=== PATIENT | male | born 1950 | race Two or more races ===

== ENCOUNTER 2025-08-15 23:24 | Emergency (ER) | payer MEDICARE ==
[~2025-08-15] VITALS: Ht 167.6 cm; Wt 74.8 kg
[2025-08-15] MEDS ORDERED: ECOT81TA5 PO (23:31)
[2025-08-16 01:15] LABS: BASO # 0.1 10^3/uL (0.0-0.2); BASO % 0.8 % (0.0-1.0); EOS # 0.3 10^3/uL (0.0-0.5); EOS % 4.1 % (0.0-3.0); LYMPH # 1.9 10^3/uL (1.5-5.0); LYMPH % 31.2 % (24.0-44.0); MONO # 0.5 10^3/uL (0.0-0.8); MONO % 8.3 % (2.0-8.0); NEUTROPHILS # 3.4 10^3/uL (1.5-8.5); NEUTROPHILS % 55.1 % (36.0-66.0); PLATELET COUNT, AUTOMATED 199 10^3/uL (150-450)
[2025-08-16 01:39] LABS: ALT/SGPT 35 U/L (7.0-40); AST/SGOT 37 U/L (<34); CALCIUM LEVEL 9.1 MG/DL (8.3-10.6); CARBON DIOXIDE LEVEL 25 MMOL/L (20-31); CHLORIDE LEVEL 100 MMOL/L (98-107); CREATININE FOR GFR 0.84 MG/DL (0.70-1.30); GLOMERULAR FILTRATION RATE > 90.0 (>42); POTASSIUM SERUM 3.9 MMOL/L (3.5-5.1); SALICYLATE LEVEL < 3.0 MG/DL (<30); SODIUM LEVEL 135 MMOL/L (136-145)
[2025-08-16 01:54] LABS: ETHYL ALCOHOL (ETHANOL) 0.285 % (0.000-0.010)
[2025-08-16 08:00] VITALS: O2SAT 91
[2025-08-16] MEDS: MULTIVITAMINS/MINERALS THERAP 1 TAB PO SCH (08:05)
[2025-08-16] MEDS: THIAMINE 100 MG TAB PO SCH (08:05)
[2025-08-16] MEDS: FOLIC ACID 1 MG TAB PO SCH (08:05)
[2025-08-16 08:57] VITALS: BP 158/92; TEMP 97.1
== END 2025-08-16 09:06 | disposition home or self-care (01) ==
LOC: M ED 23:24
DX: F10.120 Alcohol abuse with intoxication, uncomplicated (principal); S00.31XA Abrasion of nose, initial encounter; Y92.019 Unspecified place in single-family (private) house as the place of occurrence of the external cause; Y93.9 Activity, unspecified; Y99.9 Unspecified external cause status; W01.0XXA Fall on same level from slipping, tripping and stumbling without subsequent striking against object, initial encounter; M50.30 Other cervical disc degeneration, unspecified cervical region; Z79.1 Long term (current) use of non-steroidal anti-inflammatories (NSAID)